=== PATIENT | male | born 1985 | race Two or more races ===

== ENCOUNTER 2024-12-21 16:15 | Emergency (ER) | payer MEDICAID, SELFPAY ==
--- NOTE | 2024-12-21 16:34 | PD.EDSKIN ---
ED Skin Abcess FB-RME/HPI General Chief complaint: Skin/Abscess/Foreign Body Stated complaint: PIMPLE UNDER BUTTOCK Time Seen by Provider: 12/21/24 16:25 Source: family Arrival date/time: 12/21/24 16:15 39-year-old male with a history of autism, type 2 diabetes, hyperlipidemia, hypertension presents to the emergency room with a chief complaint of a pimple under his left buttocks x 2 days Mode of arrival: ambulatory Limitations: no limitations Related Data Home Medications ?Medication ?Instructions ?Recorded ?Confirmed atorvastatin 20 mg tablet 20 mg PO BID 10/28/19 10/28/19 clomipramine 50 mg capsule 50 mg PO BID 10/28/19 10/28/19 clonidine HCl 0.1 mg tablet 0.1 mg PO TID 10/28/19 10/28/19 diphenhydramine HCl 50 mg capsule 100 mg PO HS 10/28/19 10/28/19 (Banophen) gemfibrozil 600 mg tablet 600 mg PO BID 10/28/19 10/28/19 glipizide 10 mg tablet 10 mg PO BID 10/28/19 10/28/19 metformin 1,000 mg tablet 1,000 mg PO BID 10/28/19 10/28/19 sitagliptin phosphate 100 mg 100 mg PO QDAY 10/28/19 10/28/19 tablet (Januvia) Previous Rx's ?Medication ?Instructions ?Recorded acetaminophen 325 mg tablet (Mapap 650 mg (2 x 325 mg) PO Q6H PRN 10/29/19 (acetaminophen)) Fever >101.5 #20 tabs amoxicillin 875 mg-potassium 1 tab PO BID #10 tabs 10/29/19 clavulanate 125 mg tablet sulfamethoxazole 800 1 tab PO BID #20 tabs 01/22/ mg-trimethoprim 160 mg tablet sulfamethoxazole 800 1 tab PO BID #14 tabs 12/21/24 mg-trimethoprim 160 mg tablet (Bactrim DS) Allergies Allergy/AdvReac Type Severity Reaction Status Date / Time No Known Allergies Allergy Verified 12/21/24 16:18 Review of Systems Review of Systems Systems Reviewed: All systems reviewed, normal except as documented Constitutional Constitutional: Reports system reviewed and no additional complaints, except as documented, Denies fatigue, Denies fever(s), Denies headache(s) and Denies weakness Eyes Eyes: Reports system reviewed and no additional complaints, except as documented, Denies blurry vision and Denies change in vision ENT Ears, Nose, Mouth, and Throat: Reports system reviewed and no additional complaints, except as documented, Denies otalgia, Denies headache(s), Denies nasal congestion, Denies throat swelling and Denies vertigo Cardiovascular Cardiovascular: Reports system reviewed and no additional complaints, except as documented, Denies chest pain, Denies dyspnea and Denies dyspnea on exertion Respiratory Respiratory: Reports system reviewed and no additional complaints, except as documented, Denies chest congestion, Denies cough, Denies dyspnea, Denies dyspnea on exertion and Denies wheezing Gastrointestinal Gastrointestinal: Reports system reviewed and no additional complaints, except as documented, Denies abdominal pain, Denies cramping, Denies nausea and Denies vomiting Genitourinary Genitourinary: Reports system reviewed and no additional complaints, except as documented, Denies dysuria and Denies hematuria Musculoskeletal Musculoskeletal: Reports system reviewed and no additional complaints, except as documented and Denies back pain Integumentary/Breasts Skin/Breast: Reports system reviewed and no additional complaints, except as documented Neurologic Neurologic: Reports system reviewed and no additional complaints, except as documented, Denies confusion, Denies headache(s), Denies lack of coordination, Denies vertigo and Denies weakness Psychiatric Psychiatric: Reports system reviewed and no additional complaints, except as documented, Denies anxiety, Denies confusion, Denies depression, Denies paranoia, Denies suicidal ideation and Denies tactile hallucinations Endocrine Endocrine: Reports system reviewed and no additional complaints, except as documented and Denies fatigue Hematologic/Lymphatic Hematologic/Lymphatic: Reports system reviewed and no additional complaints, except as documented and Denies lymphadenopathy Allergic/Immunologic Allergic/Immunologic: Reports system reviewed and no additional complaints, except as documented, Denies throat swelling, Denies urticaria and Denies wheezing ED Exam General Limitations: Present no limitations General appearance: Present alert and in no apparent distress Head Head exam: Present atraumatic Eye Eye exam: Present normal appearance, PERRL and EOMI ENT ENT exam: Present normal exam, normal oropharynx and mucous membranes moist Neck Neck exam: Present normal inspection, full ROM and trachea midline Chest Chest inspection: Present normal inspection and symmetric chest wall rise Respiratory Respiratory exam: Present normal lung sounds bilaterally Cardiovascular Cardiovascular exam: Present regular rate, normal rhythm and normal heart sounds Abdominal Exam Abdominal exam: Present soft and normal bowel sounds Extremities Exam Extremities exam: Present normal inspection and full ROM Back Exam Back exam: Present normal inspection and full ROM Neurological Exam Neurological exam: Present alert, oriented X3 and CN II-XII intact Psychiatric Psychiatric exam: Present normal affect and normal mood Skin Skin exam: Present warm, dry, intact and normal color Expanded Skin Exam Type of lesion: Present abscess Distribution: Present other (Left buttocks) Description: Present erythematous, swelling, crusting and other; Absent discharge Body image:  1. 2 cm erythemic dry flaky folliculitis to the left buttocks. At this time there is no abscess and needs to be drained. Course Quality Measures none Orders Category Date Time Status Clindamycin Vial [Cleocin vial] Med 12/21/24 16:32 Discontinued 600 mg IM X1 ONE Skin / Abscess / Foreign Body MDM Narrative MDM Narrative:: 39-year-old male with a history of autism, type 2 diabetes, hyperlipidemia, hypertension presents to the emergency room with a chief complaint of a pimple under his left buttocks x 2 days Patient is hemodynamically stable and in no apparent distress. Physical examination shows a 2 cm erythemic dry flaky folliculitis to the left buttocks. At this time there is no abscess and needs to be drained. The area has some mild swelling and erythema. Antibiotics were sent to the patient's pharmacy and the mother was given strict return precautions if it gets worse to return to the emergency room for an incision and drainage Patient was discharged and educated to follow-up with primary care provider in the next 24 to 48 hours and return to the emergency room for any evidence of worsening signs or symptoms Patient data External records reviewed:: [facility] previous records Clinical information provided by:: patient and parent Social determinants that could affect healthcare access:: none Patient has the following chronic illnesses:: No chronic illness How is presenting disease/condition affected by chronic disease/condition?: no chronic disease Evaluation data The following diagnostics were reviewed and interpreted by me:: lab results and radiology exam(s) Lab and/or radiology exams considered but not ordered:: Labs and radiology exams considered Interpretation Summary: N/A Medications / Prescriptions Medications or Prescriptions considered but not ordered:: Medication given Medication administrations:: Medication Administration History Discontinued Medications Clindamycin Phosphate (Clindamycin Phos Inj 150 Mg/Ml Vial 6 Ml) 600 mg IM X1 ONE Stop: 12/21/24 16:33 Last Admin: 12/21/24 16:53 Dose: 600 mg Documented By: OA Medication given Consultations Consultation(s) initiated? (list below): No Diagnosis Skin/Abscess Differential Diagnosis: abscess of skin or subcutaneous tissue, cellulitis, contact dermatitis and other (Folliculitis) Most likely diagnosis given after review of the tests above:: Folliculitis Admission Indicated Admission indicated?: not indicated Admission Request Was there a request for admission?: No Disposition Plan Disposition Plan: Discharge Discharge Attestation Discharge Attestation: The patient and all family members were given an opportunity to ask questions and understood the discharge instructions. Discharge instructions specifically effects, indications for sooner follow up or return to the emergency department, and the expected course of current diagnosis. Patient condition: Stable Discharge Plan Plan Patient Disposition: HOME (Self Care) Discharge Disposition comment: Stable Prescriptions/Referrals Prescriptions/Med Rec: New sulfamethoxazole-trimethoprim [Bactrim DS] 800-160 mg tablet 1 tab PO BID Qty: 14 0RF No Action clonidine HCl 0.1 mg Tablet 0.1 mg PO TID glipizide 10 mg Tablet 10 mg PO BID gemfibrozil 600 mg Tablet 600 mg PO BID metformin 1,000 mg Tablet 1,000 mg PO BID clomipramine 50 mg Capsule 50 mg PO BID Januvia 100 mg Tablet 100 mg PO QDAY atorvastatin 20 mg Tablet 20 mg PO BID diphenhydramine HCl [Banophen] 50 mg Capsule 100 mg PO HS acetaminophen [Mapap (acetaminophen)] 325 mg Tablet 650 mg PO Q6H PRN (Reason: Fever >101.5) Qty: 20 0RF amoxicillin-pot clavulanate 875-125 mg Tablet 1 tab PO BID Qty: 10 0RF sulfamethoxazole-trimethoprim 800-160 mg tablet 1 tab PO BID Qty: 20 0RF Problem List Clinical Impression: Abscess of skin or subcutaneous tissue Patient/Caregiver Discharge Instructions Education Materials: ED Abscess Antibiotic ..., ED Folliculitis Additional Instructions: Por favor, consulte con morgan m?dico de cabecera en las pr?ximas 24 a 48 horas. Los antibi?ticos se env?an a morgan farmacia; rec?jalos y t?melos seg?n lo indicado. Si observa cualquier evidencia de empeoramiento de los signos o s?ntomas, regrese a la zuly de emergencias de inmediato. Print Language: Niue[place] Stand Alone Forms: Aimee Award Info., Patient Portal Info Letter PA/PIE CHEF Supervising Physician PA/PIE CHEF Supervising Physician: Dr. Rojo
[2024-12-21] MEDS: CLINDAMYCIN PHOS INJ 150 MG/ML VIAL 6 ML 600 MG IM (16:53)
== END 2024-12-21 17:03 | disposition home or self-care (01) ==
PROVIDERS: Emergency Provider Family Medicine; PCP Family Medicine
DX: L73.9 Follicular disorder, unspecified (principal)
CPT/HCPCS: 96372; 99283; J0736